=== PATIENT | male | born 1965 | race Caucasian/White ===

== ENCOUNTER → 2021-03-20 13:01 | Outpatient (CLI) | payer OTHER, SELFPAY ==
--- NOTE | ~2021-03-20 | CT_ITS ---
EXAMINATION: CT abdomen pelvis wo con DATE: 03/20/2021 13:21 INDICATION: Chronic prostatitis. Right groin pain, right lower quadrant abdominal pain TECHNIQUE: Computed tomography (CT) of the abdomen and pelvis was performed without intravenous contr ast. Automated exposure control and iterative reconstruction technique were employed. Exam dose: 125 7.40 mGy-cm total exam DLP. COMPARISON: 08/19/2011 CT abdomen pelvis FINDINGS: The lung bases are clear of infiltrate or consolidation. There is a small amount of high density material in the dependent aspect of both lower lobe bases, li [place] some aspirated high density material such as barium. Normal heart size. No pericardial or pleural effusion. There are scattered small hypoattenuating lesions of the liver, largest situated in the medial dome, measuring 9 mm. These are too small to definitively characterize but may be cysts. Metastatic disease is not excluded. No bile duct dilatation. No pancreatic mass lesion, calcification or pancreatic duct dilatation. Norm al splenic size. Normal morphology of the adrenal glands. No right renal mass lesion or right urinary tract calculus or hydroureteronephrosis. Approximately 4 mm nonobstructing upper pole left renal calculus. No left ureteral calculus or hydrou reteronephrosis. No left or renal space-occupying mass lesion is evident. Normal caliber of the abdominal aorta. No intraperitoneal or retroperitoneal or pelvic mass lesion or adenopathy or ascites. The urinary bladder is relatively evacuated. Normal size of the prostate gland. Mild colonic diverticulosis; no CT evidence of diverticulitis. No bowel obstruction, bowel wall thick ening, pneumatosis or intraperitoneal free air. An intramedullary marisol is noted at the left femur. No suspicious osteolytic or osteoblastic lesions are noted. IMPRESSION: Scattered hypoattenuating lesions of the liver, the largest 9 mm, possibly cysts. Less l ikely would be metastatic disease. Clinical correlation is advised Approximately 4 mm nonobstructing upper pole left renal calculus Mild diverticulosis of the colon Reviewed, dictated and finalized at [facility]. Reviewed, dictated and finalized at [facility]. IMPRESSION: Scattered hypoattenuating lesions of the liver, the largest 9 mm, possibly cysts. Less likely would be metastatic disease. Clinical correlation i s advised Approximately 4 mm nonobstructing upper pole left renal calculus Mild diverticulosis of the colon
--- NOTE | ~2021-03-20 | US_ITS ---
EXAMINATION: US scrotum doppler DATE: 03/20/2021 13:55 INDICATION: Chronic prostatitis TECHNIQUE: Testicular sonogram utilizing grayscale and Doppler COMPARISON: Ultrasound dated 05/04/[address] dated 03/20/2021 FINDINGS: The right testis measures 5.0 x 2.4 x 3.3 cm. The left testis measures 4.2 x 2.4 x 3.2 cm. Symmetric normal grayscale appearance to both testes. There is normal vascular flow to both testes. Significant interval change in a few small echogenic and shadowing calcific lesions within an 1 cm region at the tail of the otherwise normal right epididymis most likely representing a sperm granuloma. The left e pididymis is normal with normal vascular flow. Small right hydrocele. Incidentally noted is a large f at-containing right inguinal hernia extending inferiorly to the base of the right scrotum. This along with a relative asymmetric large fat-containing left inguinal hernia can be seen on the prior CT. IMPRESSION: 1. No significant change in a 1 cm region with small coarse calcifications and tail of the right epi didymis most likely representing a sperm granuloma versus less likely adenomatoid tumor. 2. Small right hydrocele. 3. Bilateral large fat-containing inguinal hernias better appreciated on prior CT. Reviewed, dictated and finalized at [facility]. IMPRESSION: 1. No significant change in a 1 cm region with small coarse calcifications and tail of the right epididymis most likely representing a sperm granuloma versus less likely adenomatoid tumor. 2. Small right hydrocele. 3. Bilateral large fat-containing inguinal hernias better appreciated on prior CT.
== END ==
PROVIDERS: Visit Provider Urology
DX: N41.1 Chronic prostatitis (principal); K40.20 Bilateral inguinal hernia, without obstruction or gangrene, not specified as recurrent; N43.3 Hydrocele, unspecified; K57.30 Diverticulosis of large intestine without perforation or abscess without bleeding; N20.0 Calculus of kidney; K76.89 Other specified diseases of liver
CPT/HCPCS: 74176; 76870; 93976

== ENCOUNTER 2021-06-04 10:36 | Outpatient (CLI) | payer OTHER, SELFPAY ==
--- NOTE | ~2021-06-04 | XR_ITS ---
EXAMINATION: XR abdomen/kub 1V DATE: 06/04/2021 11:01 INDICATION: Acute left flank pain TECHNIQUE: A supine view of the abdomen on 2 radiographs was obtained. COMPARISON: CT dated 06/04/2021 FINDINGS: Normal bowel gas pattern with small amount of gas scattered throughout nondilated large and small bow el. 5 mm stone at the upper pole of the left kidney. No other urolithiasis. Visualized portions of th e lung bases are clear with no pleural effusion. Heart size is normal. Partially visualized antegrade intramedullary marisol and interlocking intratrochanteric screw fixation at the proximal left femur. IMPRESSION: 1. 5 mm left renal stone. 2. Normal bowel gas pattern. Reviewed, dictated and finalized at [facility].
--- NOTE | ~2021-06-04 | CT_ITS ---
EXAMINATION: CT abdomen pelvis wo con DATE: 06/04/2021 11:03 INDICATION: Acute left flank pain TECHNIQUE: Computed tomography (CT) of the abdomen and pelvis was performed without intravenous contr ast. Automated exposure control and iterative reconstruction technique were employed. Exam dose: 165 5.93 mGy-cm total exam DLP. COMPARISON: None. FINDINGS: The lung bases are clear. Normal heart size. No pleural or pericardial effusion. Scattered nonspecific hepatic hypoattenuating lesions are again noted, measuring up to 10.5 mm, not significant change since 03/20/2021. Differential diagnosis includes hepatic cysts, hemangiomas, metas tases. The gallbladder is present. No bile duct or pancreatic duct dilatation. No pancreatic mass lesion or calcification. Normal splenic size. Normal morphology of the adrenal glands. Nonobstructing 5 mm upper pole left renal calculus. No other left or right urinary tract calculus or hydroureteronephrosis. Probable 10 mm upper pole right renal exophytic cyst. No other renal space-occupying mass lesion is e vident on this limited noncontrast examination. Normal caliber of the abdominal aorta. No intraperitoneal or retroperitoneal or pelvic mass lesion or adenopathy or ascites. Diverticulosis of the colon, primarily in the sigmoid and to a lesser extent descending colon; no CT evidence of diverticulitis. No evidence of appendicitis. No bowel obstruction, bowel wall thickening, pneumatosis or intraperiton eal free air. Bilateral fat-containing inguinal hernias. Degenerative changes of the lumbar spine. Intramedullary marisol of the left femur. No suspicious osteolytic or osteoblastic lesions are noted. IMPRESSION: 5 mm nonobstructing upper pole left renal calculus; no ureteral calculus or hydrouretero nephrosis is noted on either side Diverticulosis of the left colon; no CT evidence of diverticulitis Bilateral fat-containing inguinal hernias Multiple stable hepatic space occupying mass lesions Reviewed, dictated and finalized at [facility]. Reviewed, dictated and finalized at [facility]. IMPRESSION: 5 mm nonobstructing upper pole left renal calculus; no ureteral ca lculus or hydroureteronephrosis is noted on either side Diverticulosis of the left colon; no CT evidence of diverticulitis Bilateral fat-containing inguinal hernias Multiple stable hepatic space occupying mass lesions
== END 2021-06-04 10:37 | disposition home or self-care (01) ==
LOC: ANHIMG 10:39
PROVIDERS: Visit Provider Nurse Practitioner Adult Health
DX: N20.0 Calculus of kidney (principal); K40.20 Bilateral inguinal hernia, without obstruction or gangrene, not specified as recurrent; K57.30 Diverticulosis of large intestine without perforation or abscess without bleeding
CPT/HCPCS: 74018; 74176